=== PATIENT | female | born 1990 | race African-American/Black ===

== ENCOUNTER 2018-01-12 07:27 | Emergency (ER) | payer OTHER ==
[2018-01-12] MEDS ORDERED: ONDANSETRON 4 MG/2 ML VIAL IVP STA (08:06)
[2018-01-12] MEDS ORDERED: SODIUM CHLORIDE 0.9% 1,000 ML IV ONE (08:06)
--- NOTE | 2018-01-12 08:08 | ED Physician Documentation ---
PD HPI NVD - Stated complaint Stated Complaint: N/V - Chief complaint Chief Complaint: Abd Pain - History obtained from History obtained from: Patient - History of Present Illness Timing - onset: Enter time (2199), Last night Timing - duration: Hours Timing - details: Abrupt onset, Still present Associated symptoms: Loss of appetite Contributing factors: Bad food Improved by: Laying still, Vomiting Similar symptoms before: No diagnosis (has had vomiting with menstration milder and only occassionally. Has had vomiting with ) Recently seen: Not recently seen - Additonal information Additional information: Previously well 27-year-old female has developed vomiting last night. She felt that this happened out of the blue. She does note that she had some lunch meat and some grapes. And she believes she ate maybe 5 hours before this vomiting started. She has had similar vomiting with she believes it is unlikely that she is she denies any breast tenderness she is on control and she finished her menses 3 days ago. Review of Systems Constitutional: denies: Fever, Chills Eyes: denies: Decreased vision Ears: denies: Ear pain Nose: denies: Congestion Throat: denies: Sore throat Cardiac: denies: Chest pain / pressure, Palpitations Respiratory: denies: Dyspnea, Cough GI: reports: Nausea, Vomiting. denies: Abdominal Pain, Constipation, Diarrhea : denies: Dysuria, Frequency Skin: denies: Rash Musculoskeletal: denies: Neck pain, Back pain, Extremity pain Neurologic: denies: Generalized weakness, Focal weakness PD PAST MEDICAL HISTORY - Past Medical History Past Medical History: No - Past Surgical History Past Surgical History: No - Present Medications Home Medications: Ambulatory Orders Medication Instructions Recorded Confirmed Ondansetron Odt [Zofran] 4 mg TL Q6H PRN #10 tablet 01/12/18 - Allergies Allergies/Adverse Reactions: Allergies Allergy/AdvReac Type Severity Reaction Status Date / Time No Known Drug Allergies Allergy Verified 01/12/18 07:45 - Social History Does the pt smoke?: No Smoking Status: Never smoker Does the pt drink ETOH?: No - Immunizations Immunizations are current?: Yes PD ED PE NORMAL - Vitals Vital signs reviewed: Yes (tachy ) - General General: Alert and oriented X 3, No acute distress, Well developed/nourished - HEENT HEENT: Atraumatic, PERRL, EOMI - Neck Neck: Supple, no meningeal sign - Cardiac Cardiac: RRR, No murmur - Respiratory Respiratory: No respiratory distress, Clear bilaterally - Abdomen Abdomen: Soft, Non tender - Back Back: No CVA TTP, No spinal TTP - Derm Derm: Normal color, Warm and dry, No rash - Extremities Extremities: No deformity, No edema - Neuro Neuro: Alert and oriented X 3, 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0 Baso # (Auto) 0.0 Absolute Nucleated RBC 0.00 Nucleated RBC % 0.0 Sodium 138 Potassium 3.7 Chloride 103 Carbon Dioxide 27 Anion Gap 8.0 BUN 15 Creatinine 0.9 Estimated GFR (MDRD) 90 Glucose 114 H Calcium 9.1 Total Bilirubin 1.3 H AST 29 ALT 36 Alkaline Phosphatase 82 Total Protein 8.0 Albumin 4.5 Globulin 3.5 Albumin/Globulin Ratio 1.3 Lipase 29 Urine Color YELLOW Urine Clarity CLEAR Urine pH 8.5 H Ur Specific [place] 1.015 Urine Protein NEGATIVE Urine Glucose (UA) NEGATIVE Urine Ketones NEGATIVE Urine Occult Blood TRACE-LYSE Urine Nitrite NEGATIVE Urine Bilirubin NEGATIVE Urine Urobilinogen 1 (NORMAL) Ur Leukocyte Esterase NEGATIVE Ur Microscopic Review NOT INDICATED Urine Culture Comments NOT INDICATED Urine HCG, Qual NEGATIVE Procedures - IVC sono (time) 0800 Bedside IVC sono: IVC measures (cm) (0.97), IVC collapsed c insp (cm) (complete) , Dehydration (est 1.5 liter deficit) PD MEDICAL DECISION MAKING - ED course Complexity details: reviewed results, re-evaluated patient, considered differential, d/w patient ED course: 27-year-old female with acute vomiting as become dehydrated. She is administered saline intravenously as well as Zofran and has marked improvement. - Sepsis Event Vital Signs: Vital Signs - 24 hr 01/12/18 01/12/18 07:41 09:28 Temperature 37.3 C Heart Rate 101 H 84 Respiratory 18 16 Rate Blood Pressure 109/60 O2 Saturation 100 100 Departure - Departure Disposition: 01 Home, Self Care Clinical Impression: Gastroenteritis Condition: Stable Instructions: ED Food Poison Or Gastroenteritis Follow-Up: JUILANNE GARCIA PA-C [Primary Care Provider] - Prescriptions: Ondansetron Odt [Zofran] 4 mg TL Q6H PRN #10 tablet PRN Reason: Nausea / Vomiting Forms: Activity restrictions Discharge Date/Time: 01/12/18 09:29
[2018-01-12 08:20] LABS: BASOPHILS % (AUTO) 0.3 %; EOSINOPHILS % (AUTO) 0.3 %; HGB - HEMOGLOBIN 13.3 g/dL (12.0-16.0); LYMPHOCYTES # (AUTO) 0.3 10^3/uL (1.5-3.5); LYMPHOCYTES % (AUTO) 3.4 %; MEAN CORPUSCULAR HEMOGLOBIN 30.2 pg (27.0-31.0); MEAN CORPUSCULAR HGB CONC 33.8 g/dL (32.0-36.0); MEAN CORPUSCULAR VOLUME 89.4 fL (81.0-99.0); MEAN PLATELET VOLUME 8.2 fL (7.9-10.8); MONOCYTES # (AUTO) 0.4 10^3/uL (0.0-1.0); MONOCYTES % (AUTO) 4.7 %; NEUTROPHILS # (AUTO) 8.5 10^3/uL (1.5-6.6); NEUTROPHILS % (AUTO) 91.3 %; PLT - PLATELET COUNT 314 10^3/uL (130-450); RED BLOOD COUNT 4.41 10^6/uL (4.20-5.40); RED CELL DISTRIBUTION WIDTH 13.2 % (12.0-15.0); WHITE BLOOD COUNT 9.3 x10^3/uL (4.8-10.8)
[2018-01-12 08:30] LABS: BILIRUBIN,URINE NEGATIVE (NEGATIVE); GLUCOSE, URINE (UA) NEGATIVE (NEGATIVE); KETONES,URINE (UA) NEGATIVE (NEGATIVE); LEUKOCYTE ESTERASE, URINE NEGATIVE (NEGATIVE); NITRITE,URINE NEGATIVE (NEGATIVE); OCCULT BLOOD,URINE TRACE-LYSE (NEGATIVE); PH,URINE 8.5 PH (5.0-7.5); PROTEIN,URINE NEGATIVE (NEGATIVE); UROBILINOGEN,URINE 1 (NORMAL) E.U./dL (NORMAL)
[2018-01-12 08:32] LABS: ALBUMIN 4.5 g/dL (3.2-5.5); ALBUMIN/GLOBULIN RATIO 1.3 (1.0-2.2); BILIRUBIN,TOTAL 1.3 mg/dL (0.2-1.0); CALCIUM 9.1 mg/dL (8.5-10.3); CREATININE 0.9 mg/dL (0.4-1.0)
[2018-01-12 08:32] LABS: CLARITY,URINE CLEAR (CLEAR); HCG UR QUAL NEGATIVE
[2018-01-12 09:29] VITALS: BP 109/60
== END 2018-01-12 09:29 | disposition home or self-care (01) ==
LOC: ED 07:27
DX: K52.9 Noninfective gastroenteritis and colitis, unspecified (principal); E86.0 Dehydration
CPT/HCPCS: 36415; 80053; 81001; 81003; 81025; 83690; 85025; 87086; 96361; 96374; 99283

== ENCOUNTER 2018-03-22 04:48 | Emergency (ER) | payer OTHER ==
[2018-03-22 04:59] VITALS: BP 128/81
[2018-03-22] MEDS ORDERED: NEOMYCIN/POLYMYX/DEXAMETH OPHTH DROPS 5 ML EACHEYE STA (05:00)
--- NOTE | 2018-03-22 05:04 | ED Physician Documentation ---
PD HPI OPHTHO - Stated complaint Stated Complaint: ALLERGIC REACTION - Chief complaint Chief Complaint: Heent - History obtained from History obtained from: Patient - History of Present Illness Timing - onset: Yesterday Timing - duration: Days (03/15) Timing - details: Gradual onset, Still present Location: Both Quality / character: Itching, Burning, Throbbing, Sharp Associated symptoms: Redness, Tearing, Photophobia. No: Decreased vision, Loss of vision Contributing factors: Exposed to conjunctivitis, Recent URI, Other (used husbands eye drops polymyxn B sulfate/ trimethoprim) Similar symptoms before: Has not had sx before Recently seen: Not recently seen - Additional information Additional information: 27-year-old female has developed upper respiratory symptoms about a week ago and then about 2 days ago she began to develop redness to her eyes. Her had had conjunctivitis and was treated with polymyxin B sulfate and trimethoprim drops and he improved rapidly. She used his drops and she has worsened dramatically over the last day. She feels that the upper respiratory infection she had is resolving. Review of Systems Constitutional: denies: Fever, Chills, Myalgias, Fatigue Eyes: reports: Photophobia, Irritation. denies: Loss of vision, Decreased vision Ears: denies: Ear pain Nose: reports: Congestion. denies: Rhinorrhea / runny nose Throat: denies: Sore throat Cardiac: denies: Chest pain / pressure, Palpitations Respiratory: reports: Cough (resolved). denies: Dyspnea GI: denies: Abdominal Pain, Nausea, Vomiting : denies: Dysuria, Frequency PD PAST MEDICAL HISTORY - Past Medical History Past Medical History: No - Past Surgical History Past Surgical History: No - Present Medications Home Medications: Ambulatory Orders Medication Instructions Recorded Confirmed Ondansetron Odt [Zofran] 4 mg TL Q6H PRN #10 tablet 01/12/18 Neomycin/Poly/Dex Ophth Drops 1 drops EACHEYE QID #1 bottle 03/22/18 [Maxitrol Ophth Drops] - Allergies Allergies/Adverse Reactions: Allergies Allergy/AdvReac Type Severity Reaction Status Date / Time No Known Drug Allergies Allergy Verified 03/22/18 04:58 - Social History Does the pt smoke?: No Smoking Status: Never smoker Does the pt drink ETOH?: No Does the pt have substance abuse?: No - Immunizations Immunizations are current?: Yes - POLST Patient has POLST: No PD ED PE NORMAL - Vitals Vital signs reviewed: Yes (hypertensive ) - General General: Alert and oriented X 3, Well developed/nourished - HEENT HEENT: Atraumatic, PERRL, EOMI, Other (both eyes are markedly injected with injection of the conjunctiva as well .) - Neck Neck: Supple, no meningeal sign, No bony TTP - Respiratory Respiratory: No respiratory distress - Derm Derm: Normal color, Warm and dry, No rash - Extremities Extremities: No deformity, No edema - Neuro Neuro: Alert and oriented X 3, 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, No motor deficit, No sensory deficit, Normal speech Eye Opening: Spontaneous Motor: Obeys Commands Verbal: Oriented GCS Score: 15 - Psych Psych: Normal affect, Other (mood is anxious ) Results - Vitals Vitals: Vital Signs - 24 hr 03/22/18 04:53 Temperature 36.9 C Heart Rate 70 Respiratory 17 Rate Blood Pressure 128/81 H O2 Saturation 98 Oxygen O2 Source Room air PD MEDICAL DECISION MAKING - ED course Complexity details: reviewed old records, re-evaluated patient, considered differential, d/w patient ED course: 27-year-old female who appears to have had conjunctivitis that she contracted from her has used his sulfa-containing drops and now appears to be much worse. She has dense injection of both eyes worse on the left than the right she does have some swelling even of the lid on the left. I suspect she has had an allergic reaction and we have placed Maxitrol ophthalmic drops in the patient's eyes. I have indicated the patient she should expect some improvement today and should she not have significant improvement I have given her Dr. Manuel's number for follow-up. Departure - Departure Disposition: 01 Home, Self Care Clinical Impression: Allergic conjunctivitis, acute Qualifiers: Laterality: bilateral Qualified Code(s): H10.13 - Acute atopic conjunctivitis, bilateral Conjunctivitis Qualifiers: Conjunctivitis type: acute Acute conjunctivitis type: unspecified Laterality: bilateral Qualified Code(s): H10.33 - Unspecified acute conjunctivitis, bilateral Condition: Stable Instructions: ED Allergic Conjunctivitis, ED Conjunctivitis Nonspecific Follow-Up: JULIANNE GARCIA PA-C [Primary Care Provider] - Rafael Manuel MD [Provider Admit Priv/Credential] - Prescriptions: Neomycin/Poly/Dex Ophth Drops [Maxitrol Ophth Drops] 1 drops EACHEYE QID #1 bottle
== END 2018-03-22 05:21 | disposition home or self-care (01) ==
LOC: ED 04:48
DX: H10.13 Acute atopic conjunctivitis, bilateral (principal)
CPT/HCPCS: 99283; J3490